=== PATIENT | female | born 1995 | race Hispanic/Latino ===

== ENCOUNTER → 2016-06-07 | Outpatient (CLI) | payer OTHER | END | disposition home or self-care (01) | LOC: LAB.O 14:49 | PROVIDERS: ATTEND Obstetrics & Gynecology | DX: O09.32 Supervision of pregnancy with insufficient antenatal care, second trimester (principal); Z3A.23 23 weeks gestation of pregnancy ==

== ENCOUNTER → 2016-07-18 | Outpatient (CLI) | payer OTHER | END | disposition home or self-care (01) | LOC: LAB.O 08:21 | PROVIDERS: ATTEND Obstetrics & Gynecology | DX: O26.22 Pregnancy care for patient with recurrent pregnancy loss, second trimester (principal); Z3A.25 25 weeks gestation of pregnancy ==